=== PATIENT | male | born 1990 | race Caucasian/White ===

== ENCOUNTER 2018-12-27 20:53 | Emergency (ER) | payer BC, OTHER ==
[2018-12-27] MEDS ORDERED: LIDOCAINE 1% 10 ML VIAL INJ ONE (21:17)
[2018-12-27] MEDS ORDERED: NEOMYCIN-BACITRACIN-POLYMYXIN 0.9 GM UD TOP ONE (21:29)
--- NOTE | 2018-12-27 21:31 | ED.PDOC ---
History of Present Illness - General Chief Complaint: Upper Extremity Injury Stated Complaint: left ring fingernail "pulled back" Time Seen by Provider: 12/27/18 21:28 Source: patient Exam Limitations: no limitations - History of Present Illness Initial Comments: The patient is a 28-year-old male presenting secondary to having folded his fingernail back on the fourth digit of the left hand. It is barely attached at this point. No crush injury. It just got bent back. Timing/Duration: momentarily Severity: moderate Improving Factors: nothing Worsening Factors: nothing Associated Symptoms: denies symptoms Allergies/Adverse Reactions: Allergies NO KNOWN ALLERGY Allergy (Verified 12/27/18 21:16) Home Medications: Ambulatory Orders NK 12/27/18 Review of Systems - Review of Systems Constitutional: States: no symptoms reported EENTM: States: no symptoms reported Respiratory: States: no symptoms reported Cardiology: States: no symptoms reported Gastrointestinal/Abdominal: States: no symptoms reported Genitourinary: States: no symptoms reported Musculoskeletal: States: no symptoms reported Skin: States: see HPI Neurological: States: no symptoms reported Endocrine: States: no symptoms reported All other Systems: No Change from Baseline Past Medical History (General) - Patient Medical History Hx Diabetes: No - Vaccination History Hx Tetanus, Diphtheria Vaccination: No - Triage Comment ED Triage Comment: left ring finger nail injury at work Family Medical History - Family History Father Family History: Unknown Physical Exam - Physical Exam General Appearance: Alert, Comfortable, No apparent distress Eye Exam: bilateral normal Ears, Nose, Throat: hearing grossly normal Neck: full range of motion Respiratory: no respiratory distress, no accessory muscle use Cardiovascular/Chest: normal peripheral pulses, no edema Peripheral Pulses: radial,right: 2+, radial,left: 2+ Gastrointestinal/Abdominal: non tender Rectal Exam: deferred Extremity: normal range of motion, no pedal edema, normal capillary refill 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 Comments: Vital Signs - 24 hr 12/27/18 21:09 Temperature 96.6 F L Pulse Rate [ 84 Right] Respiratory 18 Rate Blood Pressure 139/93 [Right Arm] O2 Sat by Pulse 99 Oximetry Progress - Progress Progress: 12/27/18 21:29 the patient's 28-year-old male presenting to the emergency room secondary to having his nail pulled back on the fourth digit of the left hand. It is loosely attached. After risk and benefits were explained the patient agreed to have it pulled the rest of the way. This was done without difficulty. No additional anesthesia was required. Good hemostasis was obtained. Jc and Band-Aid were applied. He does need to monitor for any evidence of infection. ER warnings were given. Keep routine follow-up with primary care doctor. Departure - Departure Clinical Impression: Nail avulsion, finger Qualifiers: Encounter type: initial encounter Qualified Code(s): S61.309A - Unspecified open wound of unspecified finger with damage to nail, initial encounter Disposition: Discharge to Home or Self Care Condition: Fair Departure Forms: ED Discharge - Pt. Copy, Patient Portal Self Enrollment Diet: regular diet Activity: increase activity as tolerated Home Medications: Ambulatory Orders NK 12/27/18 Additional Instructions: the patient's 28-year-old male presenting to the emergency room secondary to having his nail pulled back on the fourth digit of the left hand. It is loosely attached. The nail was pulled without difficulty. Jc and Band- Aid were applied. He does need to monitor for any evidence of infection. ER warnings were given. Keep routine follow-up with primary care doctor.
[2018-12-27 21:45] VITALS: BP 124/90; TEMP 97.8; O2SAT 100
== END 2018-12-27 21:45 | disposition home or self-care (01) ==
LOC: ER 20:53
DX: S61.305A Unspecified open wound of left ring finger with damage to nail, initial encounter (principal); X58.XXXA Exposure to other specified factors, initial encounter; Y99.0 Civilian activity done for income or pay; Y92.69 Other specified industrial and construction area as the place of occurrence of the external cause